=== PATIENT | female | born 1975 | race Caucasian/White ===

== ENCOUNTER 2017-02-16 14:42 | Outpatient (CLI) | payer BC ==
--- NOTE | 2017-02-16 16:50 | MRI ---
MRI LEFT SHOULDER WITHOUT CONTRAST 02/16/17 INDICATION: Left shoulder pain for 2.5 months without injury. FINDINGS: There is some subtle increased T2 signal involving the capsule of the axillary recess as well as ante rior inferior aspect of the glenohumeral joint. The visualized rotator interval appears within normal limits. The rotator cuff is intact. Visualized biceps anchor complex appears within normal limits. G lenohumeral articular surface is normal appearing. There is mild AC joint hypertrophy. No muscular at rophy is evident. No enlarged lymph nodes are evident. IMPRESSION: 1. Subtle increased T2 signal involving the capsule of the axillary recess and the anterior infe rior glenohumeral joint is suspicious for changes of adhesive capsulitis or frozen shoulder. 2. Rotator cuff is intact. No ghassan paralabral cyst is evident to suggest underlying labral tear . 3. Mild AC joint osteoarthrosis. POS: [facility]
== END 2017-02-16 14:43 | disposition home or self-care (01) ==
LOC: SCSMRI 14:42
PROVIDERS: ATTEND Family Medicine
DX: M75.42 Impingement syndrome of left shoulder (principal); M19.012 Primary osteoarthritis, left shoulder

== ENCOUNTER 2023-08-09 07:26 | Outpatient (CLI) | payer BC | END 2023-08-09 07:27 | disposition home or self-care (01) | LOC: ULT 07:26 | PROVIDERS: ATTEND Internal Medicine | DX: R74.01 Elevation of levels of liver transaminase levels (principal); K76.0 Fatty (change of) liver, not elsewhere classified; R16.0 Hepatomegaly, not elsewhere classified | CPT/HCPCS: 76705 ==

== ENCOUNTER 2023-09-11 14:58 | Outpatient (CLI) | payer BC | END 2023-09-11 14:59 | disposition home or self-care (01) | LOC: SCSRAD 14:58 | PROVIDERS: ATTEND Internal Medicine Rheumatology | DX: M25.561 Pain in right knee (principal); M25.562 Pain in left knee | CPT/HCPCS: 73565 ==